=== PATIENT | male | born 1970 | race American Indian/Alaskan Native ===

== ENCOUNTER 2020-07-07 09:58 | Emergency (ER) | payer OTHER ==
[2020-07-07 10:17] VITALS: BP 141/83
[2020-07-07] MEDS ORDERED: ACETAMINOPHEN 325 MG TAB ONE (10:19)
[2020-07-07] MEDS ORDERED: ACETAMINOPHEN 325 MG TAB PO ONE (10:19)
--- NOTE | 2020-07-07 10:58 | XRay Report ---
CHEST PA AND LATERAL VIEWS INDICATION: fever and cough. COMPARISON: None. FINDINGS: Support devices: None. Heart: Within normal limits. Lungs/Pleura: No acute pulmonary or pleural findings. IMPRESSION: 1. No acute findings. Signer Name: Jimmy Bass MD Signed: 07/07/2020 10:53 AM Workstation Name: [id number]
[2020-07-07] MEDS ORDERED: LORazepam 2 MG/ML VIAL ONE (11:51)
[2020-07-07] MEDS ORDERED: LIDOCAINE 1%/EPINEPHRINE 1:100,000 VIAL (20 ML) INFILTRATI ONE (12:02)
[2020-07-07] MEDS ORDERED: LIDOCAINE PF 100 MG/5 ML (CARDIAC SYRINGE) IV ONE (12:03)
[2020-07-07] MEDS ORDERED: levETIRAcetam 1000 MG/NS 0.75% 0 MG/0 ML BAG IV ONE (12:04)
[2020-07-07 14:07] LABS: Basophils % (Auto) 0.3 % (0.0-1.8); Eosinophils % (Auto) 0.1 % (0.0-4.3); Hematocrit 42.7 % (35.5-45.6); Hemoglobin 14.8 gm/dl (11.8-15.2); Lymphocytes % (Auto) 19.1 % (13.4-35.0); Mean Corpuscular HGB Conc 35 % (32-34); Mean Corpuscular Volume 89 fl (84-94); Monocytes # (Auto) 0.6 K/mm3 (0.0-0.8); Platelet Count 150 K/mm3 (140-440); Red Blood Count 4.78 M/mm3 (3.65-5.03); Red Cell Distribution Width 14.1 % (13.2-15.2)
[2020-07-07 14:26] LABS: Alanine Aminotransferase 22 units/L (7-56); Albumin 4.8 g/dL (3.9-5); BUN/Creatinine Ratio 9; Blood Urea Nitrogen 10 mg/dL (9-20); Calcium 9.8 mg/dL (8.4-10.2); Hemolysis Index 11
--- NOTE | 2020-07-07 14:30 | Emergency Department Report ---
ED General Adult HPI - General Chief complaint: Fever Stated complaint: BODY PAIN, CHILLS, SORE THROAT Time Seen by Provider: 07/07/20 12:55 Source: patient Mode of arrival: Ambulatory Limitations: No Limitations - History of Present Illness Initial comments: 49-year-old -[place] male patient presents with complaints of sudden onset of body aches and cough x yesterday. He denies any prior medical history or recent known sick contacts. He also denies any shortness of breath, hemoptysis, chest pain, nausea/vomiting/diarrhea, abdominal pain, or loss of taste/smell. Severity scale (0 -10): 4 - Related Data Previous Rx's Medication Instructions Recorded Last Taken Type Acetaminophen 1,000 mg PO TID PRN #30 capsule 07/07/20 Unknown Rx Ibuprofen [Motrin 800 MG tab] 800 mg PO TID PRN #21 tablet 07/07/20 Unknown Rx Oseltamivir [Tamiflu] 75 mg PO BID 5 Days #10 cap 07/07/20 Unknown Rx Allergies Allergy/AdvReac Type Severity Reaction Status Date / Time No Known Allergies Allergy Unverified 07/07/20 10:17 ED Review of Systems ROS: Stated complaint: BODY PAIN, CHILLS, SORE THROAT Other details as noted in HPI Constitutional: chills, fever, malaise, weakness. denies: diaphoresis ENT: denies: throat pain Respiratory: cough. denies: shortness of breath Cardiovascular: denies: chest pain Endocrine: denies: excessive sweating Gastrointestinal: denies: abdominal pain, nausea, vomiting Musculoskeletal: denies: back pain Skin: denies: rash, change in color Neurological: denies: headache Hematological/Lymphatic: denies: swollen glands ED Past Medical Hx - Past Medical History Previous Medical History?: No - Surgical History Past Surgical History?: No - Social History Smoking Status: Never Smoker Substance Use Type: None - Medications Home Medications: Home Medications Medication Instructions Recorded Confirmed Last Taken Type Acetaminophen 1,000 mg PO TID PRN #30 capsule 07/07/20 Unknown Rx Ibuprofen [Motrin 800 MG tab] 800 mg PO TID PRN #21 tablet 07/07/20 Unknown Rx Oseltamivir [Tamiflu] 75 mg PO BID 5 Days #10 cap 07/07/20 Unknown Rx ED Physical Exam - General Limitations: No Limitations General appearance: alert, in no apparent distress - Head Head exam: Present: atraumatic, normocephalic - Eye Eye exam: Absent: scleral icterus - Neck Neck exam: Present: normal inspection, full ROM. Absent: lymphadenopathy - Respiratory Respiratory exam: Present: normal lung sounds bilaterally. Absent: respiratory distress, wheezes, rales, rhonchi - Cardiovascular Cardiovascular Exam: Present: regular rate, normal rhythm - GI/Abdominal GI/Abdominal exam: Present: soft. Absent: tenderness - Back Exam Back exam: Present: full ROM - Neurological Exam Neurological exam: Present: alert, oriented X3 - Psychiatric Psychiatric exam: Present: normal affect, normal mood - Skin Skin exam: Present: warm, dry, intact, normal color. Absent: rash, cyanosis, diaphoretic, erythema ED Course Vital Signs 07/07/20 07/07/20 10:12 14:06 Temperature 102.4 F H 99.1 F Pulse Rate 118 H 93 H Respiratory 16 Rate Blood Pressure 141/83 [Right] O2 Sat by Pulse 98 98 Oximetry ED Medical Decision Making - Lab Data Result diagrams: 07/07/20 13:09 Lab Results 07/07/20 07/07/20 07/07/20 Range/Units 13:09 13:09 13:09 WBC 5.0 (4.5-11.0) K/mm3 RBC 4.78 (3.65-5.03) M/mm3 Hgb 14.8 (11.8-15.2) gm/dl Hct 42.7 (35.5-45.6) % MCV 89 (84-94) fl MCH 31 (28-32) pg MCHC 35 H (32-34) % RDW 14.1 (13.2-15.2) % Plt Count 150 (140-440) K/mm3 Lymph % (Auto) 19.1 (13.4-35.0) % [place] % (Auto) 11.0 H (0.0-7.3) % Eos % (Auto) 0.1 (0.0-4.3) % Baso % (Auto) 0.3 (0.0-1.8) % Lymph # (Auto) 1.0 L (1.2-5.4) K/mm3 [place] # (Auto) 0.6 (0.0-0.8) K/mm3 Eos # (Auto) 0.0 (0.0-0.4) K/mm3 Baso # (Auto) 0.0 (0.0-0.1) K/mm3 Seg Neutrophils % 69.5 (40.0-70.0) % Seg Neutrophils # 3.5 (1.8-7.7) K/mm3 Sodium 141 (137-145) mmol/L Potassium 4.7 (3.6-5.0) mmol/L Chloride 99.1 (98-107) mmol/L Carbon Dioxide 30 (22-30) mmol/L Anion Gap 17 mmol/L BUN 10 (9-20) mg/dL Creatinine 1.1 (0.8-1.3) mg/dL Estimated GFR > 60 ml/min BUN/Creatinine Ratio 9 % Glucose 88 (75-100) mg/dL Lactic Acid 1.30 (0.7-2.0) mmol/L Calcium 9.8 (8.4-10.2) mg/dL Total Bilirubin 0.30 (0.1-1.2) mg/dL AST 27 (5-40) units/L ALT 22 (7-56) units/L Alkaline Phosphatase 69 (35-129) units/L Total Protein 8.2 (6.3-8.2) g/dL Albumin 4.8 (3.9-5) g/dL Albumin/Globulin Ratio 1.4 % - Radiology Data Radiology results: report reviewed CHEST PA AND LATERAL VIEWS INDICATION: fever and cough. COMPARISON: None. FINDINGS: Support devices: None. Heart: Within normal limits. Lungs/Pleura: No acute pulmonary or pleural findings. IMPRESSION: 1. No acute findings. - Medical Decision Making 49-year-old -[place] male patient presents with complaints of sudden onset of body aches and cough x yesterday. He denies any prior medical history or recent known sick contacts. He also denies any shortness of breath, chest pain, nausea/vomiting/diarrhea, abdominal pain, or loss of taste/smell. Lungs are clear to auscultation bilaterally on exam. Chest x-ray is normal. Patient initially presented with a fever of 102.4 and tachycardic at 118 bpm. After Tylenol 975 mg, heart rate now 93 and temperature now 99.1. He continues to complain of generalized body aches. Ibuprofen and Decadron given. Patient declines flu test. Recommend patient receive outpatient COVID-19 [id number] facility list was provided to patient. Patient informed to self quarantine until his test results are back. Ibuprofen and Tylenol given for fever control. Discussed importance of hydration and rest. Also recommend vitamin C and zinc. Patient to follow-up with his primary care doctor within 3 to 5 days. Strict return precautions were discussed in detail with patient who verbalizes understanding. He is nontoxic-appearing and stable for discharge home. Critical care attestation.: If time is entered above; I have spent that time in minutes in the direct care of this critically ill patient, excluding procedure time. ED Disposition Clinical Impression: Person under investigation for COVID-19, Viral syndrome Disposition: - TO HOME OR SELFCARE Is pt being admited?: No Condition: Stable Instructions: Viral Respiratory Infection, COVID-19, Prevent the Spread of COVID-19 if You Are Sick - [facility] Prescriptions: Acetaminophen 1,000 mg PO TID PRN #30 capsule PRN Reason: fever/body aches Ibuprofen [Motrin 800 MG tab] 800 mg PO TID PRN #21 tablet PRN Reason: fever/body aches Oseltamivir [Tamiflu] 75 mg PO BID 5 Days #10 cap Referrals: PRIMARY CARE, [Primary Care Provider] - 3-5 Days Forms: Work/School Release Form(ED)
[2020-07-07] MEDS ORDERED: IBUPROFEN 800 MG TAB PO ONE (14:34)
[2020-07-07] MEDS ORDERED: DEXAMETHASONE 4 MG TAB PO ONE (14:35)
== END 2020-07-07 15:06 | disposition home or self-care (01) ==
LOC: ED 09:58
DX: B34.9 Viral infection, unspecified (principal)
CPT/HCPCS: 36415; 71046; 80053; 82140; 85025; 87040; 99283; J8540; J1953; J2001; J2060